=== PATIENT | female | born 1975 | race Caucasian/White ===

== ENCOUNTER 2017-03-22 10:44 | Emergency (ER) | payer OTHER ==
[~2017-03-22] VITALS: Ht 157.5 cm; Wt 109.0 kg
[~2017-03-22 10:44] MED LIST: CELEBREX200 MG PO; LYRICA100 MG PO; LYRICA150 MG PO; MOBIC15 MG PO; MOTRIN600 MG PO; MOTRIN800 MG PO; RYBIX ODT50 MG PO; ULTRAM ER100 MG PO; ULTRAM50 MG PO
[2017-03-22] MEDS ORDERED: MOTRIN600 MG PO (12:00)
[2017-03-22] MEDS ORDERED: BACLOFEN10 MG PO (12:00)
[2017-03-22 13:35] VITALS: BP 99/60
== END 2017-03-22 13:15 | disposition home or self-care (01) ==
LOC: EME 10:44
DX: S63.502A Unspecified sprain of left wrist, initial encounter (principal); V49.50XA Passenger injured in collision with unspecified motor vehicles in traffic accident, initial encounter; F17.200 Nicotine dependence, unspecified, uncomplicated
CPT/HCPCS: 73110; 99281; 99283